=== PATIENT | female | born 1945 | race Caucasian/White ===

== ENCOUNTER 2017-04-12 02:33 | Emergency (ER) | payer MEDICARE, MEDICAID ==
[~2017-04-12] VITALS: Ht 157.5 cm; Wt 82.0 kg
[2017-04-12] MEDS ORDERED: HYDROmorphone 2 MG/ML, 1ML IVPush STA (02:58)
[2017-04-12] MEDS ORDERED: ONDANSETRON 2MG/ML, 2ML IVPush ONE (03:00)
[2017-04-12] MEDS ORDERED: ONDANSETRON 2MG/ML, 2ML ONE (03:05)
[2017-04-12] MEDS ORDERED: HYDROmorphone 1 MG/ML, 1ML ONE (03:05)
[2017-04-12 03:16] LABS: HEMATOCRIT 47.2 % (34.6-47.8); HEMOGLOBIN 15.7 g/dL (11.7-16.4); WHITE BLOOD COUNT 14.2 x10^3/uL (3.4-10)
[2017-04-12 03:27] LABS: ASPARTATE AMINO TRANSFERASE 19 U/L (15-37); BLOOD UREA NITROGEN 30 mg/dL (7-18)
[2017-04-12 05:40] VITALS: BP 121/83
== END 2017-04-12 05:48 | disposition home or self-care (01) ==
LOC: ED 05:40
DX: N20.1 Calculus of ureter (principal); J44.9 Chronic obstructive pulmonary disease, unspecified; E11.9 Type 2 diabetes mellitus without complications; I10 Essential (primary) hypertension; Z87.442 Personal history of urinary calculi
CPT/HCPCS: 36415; 71010; 74176; 80053; 81001; 83690; 85025; 93005; 96374; 96375; 99285; J1170; J2405